=== PATIENT | male | born 1975 | race African-American/Black ===

== ENCOUNTER 2017-07-15 18:19 | Emergency (ER) | payer BC ==
[~2017-07-15] VITALS: Ht 193 cm; Wt 122.5 kg
--- NOTE | 2017-07-15 18:44 | Emergency Room Report ---
History of Present Illness General Chief Complaint: General Complaint Source: Patient Present Illness HPI 41-year-old male presents to the emergency department for treatment of Trichomonas. Patient states that his girlfriend received notice that she was tested positive and is currently undergoing oral antibiotic treatment. Patient denies dysuria, hematuria, penile discharge, testicular pain or swelling, rashes , joint pain or swollen tender lymph nodes. Patient denies fevers or chills. Denies CP, Palpitations, LOC, AMS, dizziness, Changes in Vision, Sensation, paresthesias, or a sudden severe headache. Allergies: Coded Allergies: No Known Allergies (Unverified , 07/15/17) Patient History Past Medical History: see triage record Past Surgical History: none Pertinent Family History: none Immunizations: UTD Reviewed Nursing Documentation: PMH: Agreed, PSxH: Agreed Nursing Documentation-PMH Past Medical History: No Stated History Review of Systems All Other Systems: negative except mentioned in HPI Physical Exam Vital Signs Date Time Temp Pulse Resp B/P (MAP) Pulse Ox O2 Delivery O2 Flow Rate FiO2 07/15/17 18:22 98.1 70 14 111/73 96 Room Air Sp02 EP Interpretation: reviewed, normal General Appearance: no apparent distress, alert, GCS 15, non-toxic Head: normocephalic, atraumatic Eyes: bilateral eye normal inspection, bilateral eye PERRL ENT: hearing grossly normal, normal voice Neck: full range of motion Respiratory: lungs clear, normal breath sounds, speaking full sentences Cardiovascular #1: regular rate, rhythm Gastrointestinal: normal bowel sounds, non tender, soft, no guarding, no rebound Rectal: deferred Genitourinary: normal inspection, no CVA tenderness, deferred - genital exam was defered by pt. Musculoskeletal: back normal, gait/station normal, normal range of motion, non- tender Neurologic: alert, oriented x3, responsive, motor strength/tone normal, sensory intact, speech normal Psychiatric: judgement/insight normal, memory normal, mood/affect normal Skin: normal color, no rash, warm/dry, well hydrated Lymphatic: no adenopathy Medical Decision Making PA Attestation Dr. Brambila is my supervising Physician whom patient management has been discussed with. Diagnostic Impression: Primary Impression: Exposure to trichomonas ER Course Pt. presents to the ED c/o being exposed to Trich, his GF tested positive for it. denies fevers, chills, dysuria, hematuria, penile d/c, testicular pain or swelling. Ddx considered but are not limited to UTi , Urethritis, LGV, STI, Stone, Cystitis, prostatitis Vital signs: are WNL, pt. is afebrile H&PE are most consistent with sexual exposure to person diagnosed with trichomonas ORDERS: - None required at this time ED INTERVENTIONS: - pt. declines prophylactic treatment of G & C as he is not having symptoms, and gf did not test positive for those. DISCHARGE: At this time pt. is stable for d/c to home. Will provide printed patient care instructions, and any necessary prescriptions. Care plan and follow up instructions have been discussed with the patient prior to discharge. Last Vital Signs Date Time Temp Pulse Resp B/P (MAP) Pulse Ox O2 Delivery O2 Flow Rate FiO2 07/15/17 18:22 98.1 70 14 111/73 96 Room Air Disposition: HOME, SELF-CARE Condition: Stable Scripts Metronidazole* (FLAGYL*) 500 Mg Tablet 500 MG ORAL BID for 7 Days, #14 TAB 0 Refills Prov: Radha Lewis 07/15/17 Patient Instructions: Trichomonas Test Additional Instructions: Take medications as directed. Follow up with a Primary Care Provider in 3-5 days, even if your symptoms have resolved. --Please review list of primary care clinics, if you do not already have a primary care provider ! Do not drink alcohol while taking Flagyl/Metronidazole as this will cause a skin reaction. Return sooner to ED if new symptoms occur, or current symptoms become worse. - Please note that this Emergency Department Report was dictated using Digital Railroadair[employer] and power plant mechanic technology software, occasionally this can lead to erroneous entry secondary to interpretation by the dictation equipment. Radha Lewis Jul 15, 2017 18:44
[2017-07-15] MEDS ORDERED: METRONIDAZOLE500 MG ORAL (18:45)
[2017-07-15 19:06] VITALS: BP 111/73
[2017-07-15 19:08] VITALS: BP 111/73
== END 2017-07-15 19:09 | disposition home or self-care (01) ==
LOC: EMR 18:37
DX: Z20.2 Contact with and (suspected) exposure to infections with a predominantly sexual mode of transmission (principal)
CPT/HCPCS: 99283

== ENCOUNTER 2018-09-17 11:49 | Emergency (ER) | payer BC ==
[~2018-09-17] VITALS: Ht 193 cm; Wt 122.5 kg
[~2018-09-17 11:49] MED LIST: METRONIDAZOLE500 MG ORAL
[2018-09-17 11:59] VITALS: BP 127/76
[2018-09-17] MEDS ORDERED: METRONIDAZOLE250 MG ORAL (12:36)
--- NOTE | 2018-09-17 21:20 | Emergency Room Report ---
History of Present Illness General Chief Complaint: Male Urogenital Problems Source: Patient Present Illness [facility] The patient is a 42-year-old male presenting for possible STD exposure. He states that his partner was diagnosed with trichomoniasis 2 weeks prior and received treatment. He has not been sexually active with her since then. He denies any symptoms but states that he would like to be treated. He denies N, V , F, chills, abd pain, rash, penile DC, dysuria, hematuria Allergies: Coded Allergies: No Known Allergies (Unverified , 09/17/18) Patient History Past Medical History: see triage record Pertinent Family History: none Reviewed Nursing Documentation: PMH: Agreed; PSxH: Agreed Nursing Documentation-PMH Past Medical History: No Stated History Review of Systems All Other Systems: negative except mentioned in HPI Physical Exam Vital Signs Date Time Temp Pulse Resp B/P (MAP) Pulse Ox O2 Delivery O2 Flow Rate FiO2 09/17/18 11:59 98.2 78 14 127/76 96 Room Air Sp02 EP Interpretation: reviewed, normal General Appearance: no apparent distress, alert, GCS 15, non-toxic Respiratory: chest non-tender, lungs clear, normal breath sounds, speaking full sentences Genitourinary: normal inspection, no CVA tenderness Musculoskeletal: back normal, gait/station normal, normal range of motion, non- tender Neurologic: alert, oriented x3, responsive, motor strength/tone normal, sensory intact, speech normal Psychiatric: judgement/insight normal, memory normal, mood/affect normal, no suicidal/homicidal ideation Skin: normal color, no rash, warm/dry, well hydrated Medical Decision Making PA Attestation Dr. Mendez is my supervising physician. Patient management was discussed with my supervising physician Diagnostic Impression: Primary Impression: Exposure to trichomonas ER Course The patient is a 42-year-old male presenting for possible STD exposure. Differential diagnoses considered but not limited to: Gonorrhea, Chlamydia, herpes, trich, urinary tract infection, among others PE: Afebrile, NAD Abd soft and non tender. unremarkable. He declines any testing including UA He is given prescription of flagyl and is DC'ed home. ER precautions given Last Vital Signs Date Time Temp Pulse Resp B/P (MAP) Pulse Ox O2 Delivery O2 Flow Rate FiO2 09/17/18 12:40 98.2 78 14 127/76 96 Room Air Status: improved Disposition: HOME, SELF-CARE Condition: Improved Scripts Metronidazole* (FLAGYL*) 250 Mg Tablet 250 MG ORAL EVERY 8 HOURS, #21 TAB 0 Refills Prov: MIKE SCOTT 09/17/18 Referrals: [facility],REFERRING (PCP) Patient Instructions: Sexually Transmitted Disease, Safe Sex Additional Instructions: You did not allow for any testing today. Please return to ER if any symptoms occur or if you change your mind. Please follow up with your primary doctor. MIKE SCOTT Sep 17, 2018 21:20
== END 2018-09-17 12:42 | disposition home or self-care (01) ==
LOC: EMR 12:39
DX: Z20.2 Contact with and (suspected) exposure to infections with a predominantly sexual mode of transmission (principal)
CPT/HCPCS: 99282

== ENCOUNTER 2019-02-28 14:33 | Emergency (ER) | payer BC ==
[~2019-02-28] VITALS: Ht 193 cm; Wt 122.5 kg
[~2019-02-28 14:33] MED LIST changes: +METRONIDAZOLE250 MG ORAL
[2019-02-28 14:54] VITALS: BP 128/76
--- NOTE | 2019-02-28 14:55 | NUR ---
ED Nurse Note: Patient walked in to ER c/o congestion and coughing with yellow mucus for 2 weeks. pt aao x4 and ambulatory. pt denied sore throat, NUNO, N/V/D. skin clean and intact.
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
[2019-02-28] MEDS ORDERED: GUAIFENESIN1200 MG PO (15:23)
[2019-02-28] MEDS ORDERED: PROMETHAZINE-C118 M1 ORAL (15:23)
[2019-02-28] MEDS ORDERED: ALLERCLEAR D-11 EACH PO (15:23)
[2019-02-28 15:29] VITALS: BP 128/76
--- NOTE | 2019-02-28 15:30 | NUR ---
ER DISCHARGE NOTE: Patient is cleared to be discharged per ERPA, pt is aox4, on room air, with stable vital signs. pt was given dc and prescription instructions, pt was able to verbalize understanding, pt id band removed. pt is able to ambulate with steady gait. pt took all belongings.
== END 2019-02-28 15:30 | disposition home or self-care (01) ==
LOC: EMR 15:20
DX: J20.9 Acute bronchitis, unspecified (principal); R09.82 Postnasal drip
CPT/HCPCS: 99282

== ENCOUNTER 2019-06-21 14:23 | Emergency (ER) | payer BC ==
[~2019-06-21] VITALS: Ht 193 cm; Wt 127.0 kg
[~2019-06-21 14:23] MED LIST changes: +ALLERCLEAR D-11 EACH PO; +GUAIFENESIN1200 MG PO; +PROMETHAZINE-C118 M1 ORAL
--- NOTE | 2019-06-21 14:35 | NUR ---
ED Nurse Note: PT WALKED IN TO ER TODAY FROM HOME. AOX4. PT C/O RIGHT LOWER JAW TOOTHACHE X 3 DAYS AGO. PT STATES HE DID NOT ATTEMPT TO FIND OR CALL A DENTIST AND THAT HE JUST NEEDS MEDICATION FOR PAIN. PT STATES HE HAS BEEN TAKING IBUPROFEN AT HOME WITHOUT RELIEF.
[2019-06-21 14:36] VITALS: BP 120/68
[2019-06-21 14:48] VITALS: BP 116/84
[2019-06-21] MEDS ORDERED: AMOXICILLIN500 MG ORAL (14:54)
[2019-06-21] MEDS ORDERED: IBUPROFEN600 MG ORAL (14:54)
--- NOTE | 2019-06-21 15:03 | NUR ---
ED Nurse Note: PT SITTING PEACEFULLY IN BED IN NAD. AOX4. PRESCRIPTION AND DISCHARGE PAPERWORK EXPLAINED TO PT. PT VERBALIZES UNDERSTANDING AND ALL QUESTIONS ANSWERED. PRESCRIPTION AND DISCHARGE PAPERWORK GIVEN TO PT AND ID KYLE REMOVED. PT WALKED OUT OF ER WITH STEADY GAIT AND ALL BELONGINGS.
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
== END 2019-06-21 15:03 | disposition home or self-care (01) ==
LOC: EMR 14:44
DX: K08.89 Other specified disorders of teeth and supporting structures (principal)
CPT/HCPCS: 99282

== ENCOUNTER 2019-07-30 07:58 | Emergency (ER) | payer BC ==
[~2019-07-30] VITALS: Ht 195.6 cm; Wt 122.5 kg
[~2019-07-30 07:58] MED LIST changes: +AMOXICILLIN500 MG ORAL; +IBUPROFEN600 MG ORAL
[2019-07-30 08:10] VITALS: BP 117/73
--- NOTE | 2019-07-30 08:11 | NUR ---
ED Nurse Note: Patient walked in to ER from home due to Rt 5th finger unable to bend x2 weeks. per pt, he was throwing a ball with his kid and he hit his finger hard 2 weeks ago. Patient alert and oriented x4 and ambulatory. skin clean and intact. calm and cooperative. No acute distress noted at this time. Rt pinky swelling noted.
--- NOTE | 2019-07-30 08:12 | NUR ---
ED Nurse Note: ERMD at bedside.
--- NOTE | 2019-07-30 08:20 | NUR ---
ED Nurse Note: x-ray at bedside.
--- NOTE | 2019-07-30 08:46 | NUR ---
ED Nurse Note: ERMD at bedside explaining x-ray result to pt.
--- NOTE | 2019-07-30 08:51 | NUR ---
ED Nurse Note: splint appied on Rt pinky.
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
[2019-07-30 09:00] VITALS: BP 121/87
--- NOTE | 2019-07-30 09:00 | NUR ---
ED Nurse Note: Pt cleared by health care Provider for discharge after splint applied on Rt pinky. DC instructions was given and explained to pt and verbalized understanding of teachings. All medical deviecs such as ID band removed. Pt is AAO x4, ambulatory and left with all personal belongings.
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
== END 2019-07-30 09:00 | disposition home or self-care (01) ==
LOC: EMR 08:09
DX: S69.92XA Unspecified injury of left wrist, hand and finger(s), initial encounter (principal); X50.1XXA Overexertion from prolonged static or awkward postures, initial encounter; Y93.61 Activity, american tackle football; Y92.9 Unspecified place or not applicable
CPT/HCPCS: 29130; 99283